=== PATIENT | male | born 1990 | race Caucasian/White ===

== ENCOUNTER → 2019-09-08 | Emergency (ER) | payer OTHER ==
[~2019-09-08] VITALS: Ht 177.8 cm; Wt 77.0 kg
[2019-09-08 08:26] VITALS: BP 147/66
== END | disposition left against medical advice (07) ==
LOC: ER 08:21
DX: S09.8XXA Other specified injuries of head, initial encounter (principal); Y04.0XXA Assault by unarmed brawl or fight, initial encounter; Y93.89 Activity, other specified; Y92.89 Other specified places as the place of occurrence of the external cause
CPT/HCPCS: 99283